=== PATIENT | male | born 1960 ===

== ENCOUNTER 2018-02-20 10:52 | Emergency (ER) ==
[~2018-02-20] VITALS: Ht 172.7 cm; Wt 95.3 kg
--- OUTSIDE RECORDS SUMMARY | 2018-02-20 10:54 | XMS REPORT ---
Author Author [facility] Address Unknown Phone Unavailable Care Team Providers Care [employer] Name Role Phone Unavailable Unavailable Payers Payer Name Policy Type Policy Number Effective Date Expiration Date Problems This patient has no known problems. Allergies, Adverse Reactions, Alerts Allergy Name Allergy Type Status Severity Reaction(s) Onset Date Inactive Date Treating Clinician Comments No Known Allergies DA Active U 2018-01-15 00:00:00 No Known Allergies DA Active U 2013-06-23 00:00:00 Medications This patient has no known medications.
[2018-02-20] MEDS ORDERED: HYDROCODONE/APAP 10MG-325MG TAB PO ONE (11:00)
--- NOTE | 2018-02-20 12:06 | Diagnostic Imaging Report ---
RIGHT KNEE X-RAY - 3 VIEWS HISTORY: ^r/o fx ^[id number] ^[id number] COMPARISON: None available. FINDINGS: Bones: No acute displaced fracture. Osseous alignment is within normal limits. Joints: The joint spaces are well-maintained. Soft tissues: The soft tissues appear unremarkable. IMPRESSION: No acute radiographic abnormality. Signed by: Dr. Nancy Pettit M.D. on 02/20/2018 12:02 PM
== END 2018-02-20 12:37 | disposition left against medical advice (07) ==
LOC: ER 10:52
DX: M25.561 Pain in right knee (principal); R26.2 Difficulty in walking, not elsewhere classified; X50.1XXA Overexertion from prolonged static or awkward postures, initial encounter; Y99.0 Civilian activity done for income or pay; I10 Essential (primary) hypertension
CPT/HCPCS: 99282